=== PATIENT | male | born 1995 ===

== ENCOUNTER 2021-08-22 09:37 | Inpatient (IN) | payer SELFPAY ==
[2021-08-22] MEDS ORDERED: ONDANSETRON 4 MG ODT TAB PO ONE (10:19)
[2021-08-22 11:59] LABS: Hematocrit 50.2 % (35.5-45.6); Hemoglobin 16.5 gm/dl (11.8-15.2); Mean Corpuscular HGB Conc 33 % (32-34); Mean Corpuscular Volume 89 fl (84-94); Platelet Count 430 K/mm3 (140-440); Red Blood Count 5.65 M/mm3 (3.65-5.03); Red Cell Distribution Width 13.6 % (13.2-15.2)
[2021-08-22 12:41] LABS: Albumin 7.3 g/dL (3.9-5)
[2021-08-22] MEDS ORDERED: SODIUM CHLORIDE 0.9% 1000 ML 1,000 ML IV ONE (13:53)
--- NOTE | 2021-08-22 14:00 | Emergency Department Report ---
ED Abdominal Pain HPI - General Chief Complaint: Abdominal Pain Stated Complaint: LEG PAIN Time Seen by Provider: 08/22/21 13:47 Source: patient Mode of arrival: Ambulatory Limitations: Language Barrier - History of Present Illness Initial Comments: Patient is a 26-year-old male presenting to ED with complaint of abdominal pain, vomiting, generalized body aches, malaise and subjective fever beginning yesterday. He is from out of town and visiting a friend. States he had similar episode years ago that improved with IV fluids. He denies any strenuous activity recently. No modifying factors. Reports history of abdominal hernia. - Related Data Allergies Allergy/AdvReac Type Severity Reaction Status Date / Time No Known Allergies Allergy Verified 08/22/21 10:19 ED Review of Systems ROS: Stated complaint: LEG PAIN Other details as noted in HPI Comment: All other systems reviewed and negative Constitutional: denies: chills, fever Respiratory: denies: cough, shortness of breath, wheezing Cardiovascular: denies: chest pain, palpitations ED Past Medical Hx - Past Medical History Previous Medical History?: No ED Physical Exam - General Limitations: Language Barrier General appearance: alert, in no apparent distress - Head Head exam: Present: atraumatic, normocephalic - Eye Eye exam: Present: normal appearance. Absent: scleral icterus - Neck Neck exam: Present: normal inspection - Respiratory Respiratory exam: Present: normal lung sounds bilaterally. Absent: respiratory distress - Cardiovascular Cardiovascular Exam: Present: normal rhythm, tachycardia, normal heart sounds - GI/Abdominal GI/Abdominal exam: Present: soft. Absent: distended, tenderness, organomegaly, mass - Rectal Rectal exam: Present: deferred - Neurological Exam Neurological exam: Present: alert, oriented X3 - Psychiatric Psychiatric exam: Present: normal affect, normal mood - Skin Skin exam: Present: warm, dry, intact, normal color ED Course Vital Signs 08/22/21 08/22/21 08/22/21 10:06 14:11 16:11 Temperature 98.7 F Pulse Rate 135 H 101 H 108 H Respiratory 16 16 16 Rate Blood Pressure 116/79 Blood Pressure 121/73 110/67 [Left] O2 Sat by Pulse 97 100 100 Oximetry 08/22/21 18:00 Temperature Pulse Rate 93 H Respiratory 14 Rate Blood Pressure Blood Pressure 102/60 [Left] O2 Sat by Pulse 100 Oximetry ED Medical Decision Making - Lab Data Result diagrams: 08/22/21 11:28 08/22/21 18:39 - Medical Decision Making Significant laboratory findings include creatinine of 6.7 and CK of 1934. Patient given IV fluids. Differential diagnosis includes acute renal failure, rhabdomyolysis. Will admit to hospitalist for further management. Critical care attestation.: If time is entered above; I have spent that time in minutes in the direct care of this critically ill patient, excluding procedure time. ED Disposition Clinical Impression: Acute renal failure, Elevated CK Disposition: ADMITTED INPATIENT Is pt being admited?: Yes Condition: Stable
--- NOTE | 2021-08-22 16:56 | Cat Scan Report ---
CT ABDOMEN AND PELVIS WITHOUT CONTRAST INDICATION / CLINICAL INFORMATION: Abdominal pain. TECHNIQUE: Axial CT images were obtained through the abdomen and pelvis without IV contrast. All CT scans at this location are performed using CT dose reduction for ALARA by means of automated exposure control. COMPARISON: None available. FINDINGS: LOWER CHEST: Small left anterior pneumothorax along the lingula. Additional gas seen tracking along t he medial left lower lobe and in the left fissure. There is pneumomediastinum and tiny right pneumoth orax posteriorly. No focal airspace consolidation. LIVER: No significant abnormality GALLBLADDER/BILIARY TREE: No significant abnormality PANCREAS: No significant abnormality SPLEEN: No significant abnormality ADRENALS: No significant abnormality RIGHT KIDNEY / URETER: No significant abnormality LEFT KIDNEY / URETER: No significant abnormality URINARY BLADDER: No significant abnormality REPRODUCTIVE ORGANS: No significant abnormality STOMACH / BOWEL: Stomach and small bowel are normal in caliber. The colon is largely decompressed wit hout significant wall thickening or pericolonic inflammatory stranding. Normal appendix. LYMPH NODES: No significant adenopathy. VASCULATURE: No significant abnormality. OTHER: No free air, free fluid, or focal fluid collection is identified. SKELETAL SYSTEM: No acute osseous findings. IMPRESSION: 1. Partially imaged small bilateral pneumothoraces, left greater the right, and pneumomediastinum. Th is is nonspecific but could represent esophageal injury/perforation, though the visualized esophagus appears unremarkable. Recommend further evaluation with CT of the chest. 2. No acute abnormality of the abdomen or pelvis. No evidence of localized bowel inflammation or obst ruction. Findings were discussed with Dr. Huerta by phone on 08/22/2021 at 3:50 PM. Signer Name: Justo Cheung MD Signed: 08/22/2021 4:51 PM Workstation Name: [email or web address]
[2021-08-22 18:55] LABS: Band Neutrophils # (Manual) 0.3 K/mm3; Basophils % (Manual) 0 % (0.0-1.8); Platelet Estimate Consistent w Auto; RBC Morphology Normal; Total Cells Counted 100
[2021-08-22 19:34] LABS: Calcium 11.4 mg/dL (8.4-10.2)
--- NOTE | 2021-08-22 19:44 | Cat Scan Report ---
CT CHEST WITHOUT CONTRAST INDICATION / CLINICAL INFORMATION: Pneumothoraces on CT abdomen. TECHNIQUE: Axial CT images were obtained through the chest without contrast. All CT scans at this [facility] ation are performed using CT dose reduction for ALARA by means of automated exposure control. COMPARISON: None available. FINDINGS: HEART: No significant abnormality. CORONARY ARTERY CALCIFICATION: Absent -- None. THORACIC AORTA: No significant abnormality. MEDIASTINUM / ASHLEY: Mild pneumomediastinum. PLEURA: Somewhat limited in evaluation given respiratory motion artifact. Suspect tiny left basilar p neumothorax. LUNGS: No acute air space or interstitial disease. ADDITIONAL FINDINGS: None. UPPER ABDOMEN: No significant abnormality. SKELETAL SYSTEM: No significant abnormality. IMPRESSION: Mild to moderate pneumomediastinum with tiny left-sided pneumothorax near the left lung base. See abo ve comments. There is no obvious fluid within the mediastinum within the limits of the exam. Neverthe less if there is concern for esophageal injury barium swallow is suggested for further evaluation. Signer Name: Izaiah Rawls MD Signed: 08/22/2021 7:39 PM Workstation Name: [id number]
[2021-08-22] MEDS ORDERED: METOCLOPRAMIDE 10 MG/2 ML INJ IV PRN (20:59)
[2021-08-22] MEDS ORDERED: MORPHINE 2 MG/1 ML INJ IV PRN (20:59)
[2021-08-22] MEDS ORDERED: ONDANSETRON 4 MG/2 ML INJ IV PRN (20:59)
[2021-08-22] MEDS ORDERED: ACETAMINOPHEN 325 MG TAB PO PRN (20:59)
[2021-08-22] MEDS ORDERED: oxyCODONE /ACETAMINOPHEN 5-325MG TAB PO PRN (20:59)
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
[2021-08-22] MEDS: SODIUM CHLORIDE 0.9% 1000 ML 1,000 ML IV SCH (21:22)
[2021-08-22] MEDS: HEPARIN 5,000 UNIT/1 ML VIAL SUB-Q SCH (23:26)
[2021-08-23] MEDS: cefTRIAXone/NS 1 GM/50 ML 1 GM/50 ML BAG IV SCH ×2 (00:46→13:15)
[2021-08-23 04:57] LABS: Hematocrit 39.8 % (35.5-45.6); Hemoglobin 13.9 gm/dl (11.8-15.2); Mean Corpuscular HGB Conc 35 % (32-34); Mean Corpuscular Volume 88 fl (84-94); Platelet Count 304 K/mm3 (140-440); Red Blood Count 4.53 M/mm3 (3.65-5.03); Red Cell Distribution Width 13.7 % (13.2-15.2)
[2021-08-23 05:16] LABS: Albumin 4.9 g/dL (3.9-5); Calcium 9.8 mg/dL (8.4-10.2)
[2021-08-23 05:58] LABS: Bilirubin,Urine NEG (Negative); Blood,Urine LG (Negative); Color,Urine Yellow (Yellow); Urobilinogen,Urine < 2.0 mg/dL (<2.0)
[2021-08-23 06:06] LABS: Basophils % (Manual) 0 % (0.0-1.8); Eosinophils % (Manual) 0 % (0.0-4.3); Total Cells Counted 100
[2021-08-23 06:08] LABS: Platelet Estimate Consistent w Auto; RBC Morphology Normal
[2021-08-23] MEDS: SODIUM CHLORIDE 0.9% 1000 ML 1,000 ML IV SCH ×2 (06:43→21:14)
[2021-08-23] MEDS ORDERED: CEFEPIME/NS 1 GM/100 ML 1 GM/100 ML BAG IV SCH (08:00)
--- NOTE | 2021-08-23 09:49 | Consultation ---
History of Present Illness - Reason for Consult Consult date: 08/23/21 acute renal failure - History of Present Illness Patient is a 26-year-old male presenting to ED with complaint of abdominal pain, vomiting, generalized body aches, malaise and subjective fever beginning yesterday. He reports a similar episode years ago that improved with IV fluids. He denies any strenuous activity recently. No modifying factors. Reports history of abdominal hernia. Labs were notable for creatinine 6.7 and calcium 12. CK has increased to 3k. Past History Past Medical History: No medical history Past Surgical History: No surgical history Social history: lives with family, full code Family history: hypertension Medications and Allergies Allergies Allergy/AdvReac Type Severity Reaction Status Date / Time No Known Allergies Allergy Verified 08/22/21 10:19 Home Medications Medication Instructions Recorded Confirmed Last Taken Type No Known Home Medications [No 08/23/21 08/23/21 Unknown History Reported Home Medications] Active Meds: Active Medications Acetaminophen (Acetaminophen 325 Mg Tab) 650 mg PO Q4H PRN PRN Reason: Pain MILD(1-3)/Fever >100.5/AMADOR Heparin Sodium (Porcine) (Heparin 5,000 Unit/1 Ml Vial) 5,000 unit SUB-Q Q12HR ARELI Last Admin: 08/22/21 23:26 Dose: 5,000 unit Sodium Chloride (Nacl 0.9% 1000 Ml) 1,000 mls @ 150 mls/hr IV DIRECT ARELI Last Admin: 08/23/21 06:43 Dose: 150 mls/hr Ceftriaxone Sodium (Rocephin/Ns 1 Gm/50 Ml) 1 gm in 50 mls @ 100 mls/hr IV Q24HR ARELI; Protocol Last Admin: 08/23/21 00:46 Dose: 100 mls/hr Metronidazole (Flagyl 500 Mg/100 Ml) 500 mg in 100 mls @ 100 mls/hr IV Q8H ARELI; Protocol Metoclopramide HCl (Metoclopramide 10 Mg/2 Ml Inj) 5 mg IV Q6H PRN PRN Reason: Nausea And Vomiting Morphine Sulfate (Morphine 2 Mg/1 Ml Inj) 2 mg IV Q4H PRN PRN Reason: Pain, Moderate (4-6) Ondansetron HCl (Ondansetron 4 Mg/2 Ml Inj) 4 mg IV Q8H PRN PRN Reason: Nausea And Vomiting Oxycodone/Acetaminophen (Oxycodone /Acetaminophen 5-325mg Tab) 1 tab PO Q6H PRN PRN Reason: Pain, Moderate (4-6) Sodium Chloride (Sodium Chloride 0.9% 10 Ml Flush Syringe) 10 ml IV BID ARELI Last Admin: 08/22/21 23:34 Dose: 10 ml Sodium Chloride (Sodium Chloride 0.9% 10 Ml Flush Syringe) 10 ml IV PRN PRN PRN Reason: LINE FLUSH Review of Systems All systems: negative Exam - Vital Signs Vital signs: Vital Signs Temp Pulse Resp BP Pulse Ox 98.7 F 135 H 16 116/79 97 08/22/21 10:06 08/22/21 10:06 08/22/21 10:06 08/22/21 10:08/22/21 10:06 - General Appearance General appearance: well-developed, well-nourished EENT: ATNC Respiratory: Clear to Ascultation Heart: S1S2 Gastrointestinal: Present: normal. Absent: tenderness, distended Integumentary: warm and dry Results - Lab Results 08/24/21 04:25 08/24/21 04:25 Most recent lab results Calcium 9.8 mg/dL (8.4-10.2) 08/23/21 04:30 Assessment and Plan Impression: * Acute kidney injury secondary to prerenal azotemia due to volume depletion * Rhabdomyolysis * Pneumomediastinum * Pneumonthorax, bilateral * Hypercalcemia - resolved Plan: * Renal function has improved since admission. Continue conservative management. No acute need for renal replacement therapy * IVF for hydration * Abd/Pelvic CT reviewed - no renal findings noted * Avoid potential nephrotoxins agents * Dose medications for renal renal
--- NOTE | 2021-08-23 10:04 | Gastroenterology Consultation ---
<PANDA MCALLISTER - Last Filed: 08/23/21 11:24> History of Present Illness - Reason for Consult Consult date: 08/23/21 possible esophageal tear - History of Present Illness Mr. Gao is a 26 y/o setswana speaking M who presented to the ED yesterday c/o abd cramping, fatigue, weakness, and vomiting x2 days. He describes his pain as "cramping" and is located in his LLQ and radiates to his umbilical region. Denies vomiting today or seeing blood in his vomit previously. No BMs since admission. Pt reports that he has been eating and doing well in the hospital, but previously eating was causing him to feel sick to his stomach and vomit. Pt reports previous episodes similar to this x1.5 yrs ago. He reports being hospitalized x2 days at that time. Reports having and EGD that revealed a hernia, did not report other findings. GI has been consulted for a possible e sophageal tear as evidenced by chest CT. Further workup (barium swallow) was recommended. CK 1934, creatinine 6.7. Past History Past Medical History: No medical history Past Surgical History: No surgical history Social history: lives with family, full code Family history: hypertension Medications and Allergies Allergies Allergy/AdvReac Type Severity Reaction Status Date / Time No Known Allergies Allergy Verified 08/22/21 10:19 Home Medications Medication Instructions Recorded Confirmed Last Taken Type No Known Home Medications [No 08/23/21 08/23/21 Unknown History Reported Home Medications] Active Meds: Active Medications Acetaminophen (Acetaminophen 325 Mg Tab) 650 mg PO Q4H PRN PRN Reason: Pain MILD(1-3)/Fever >100.5/[facility] Heparin Sodium (Porcine) (Heparin 5,000 Unit/1 Ml Vial) 5,000 unit SUB-Q Q12HR ARE[facility] Last Admin: 08/22/21 23:26 Dose: 5,000 unit Sodium Chloride (Nacl 0.9% 1000 Ml) 1,000 mls @ 150 mls/hr IV DIRECT ARELI Last Admin: 08/23/21 06:43 Dose: 150 mls/hr Ceftriaxone Sodium (Rocephin/Ns 1 Gm/50 Ml) 1 gm in 50 mls @ 100 mls/hr IV Q24HR [facility]; Protocol Last Admin: 08/23/21 00:46 Dose: 100 mls/hr Metronidazole (Flagyl 500 Mg/100 Ml) 500 mg in 100 mls @ 100 mls/hr IV Q8H [facility]; Protocol Metoclopramide HCl (Metoclopramide 10 Mg/2 Ml Inj) 5 mg IV Q6H PRN PRN Reason: Nausea And Vomiting Morphine Sulfate (Morphine 2 Mg/1 Ml Inj) 2 mg IV Q4H PRN PRN Reason: Pain, Moderate (4-6) Ondansetron HCl (Ondansetron 4 Mg/2 Ml Inj) 4 mg IV Q8H PRN PRN Reason: Nausea And Vomiting Oxycodone/Acetaminophen (Oxycodone /Acetaminophen 5-325mg Tab) 1 tab PO Q6H PRN PRN Reason: Pain, Moderate (4-6) Sodium Chloride (Sodium Chloride 0.9% 10 Ml Flush Syringe) 10 ml IV BID [facility] Last Admin: 08/22/21 23:34 Dose: 10 ml Sodium Chloride (Sodium Chloride 0.9% 10 Ml Flush Syringe) 10 ml IV PRN PRN PRN Reason: LINE FLUSH Review of Systems - Review of Systems Gastrointestinal: abdominal pain, vomiting Exam - Constitutional Vital Signs: Temp Pulse Resp BP Pulse Ox 99.1 F 89 7 L 109/72 100 08/22/21 20:52 08/22/21 21:31 08/22/21 21:31 08/22/21 21:31 08/23/21 06:37 - EENT ENT: hearing intact - Gastrointestinal General gastrointestinal: Present: soft, tender, non-distended - Neurologic Neurological: alert and oriented x3 - Psychiatric Psychiatric: appropriate mood/affect, intact judgment & insight, memory intact, cooperative - Labs CBC & Chem 7: 08/23/21 04:30 08/23/21 04:30 Lab Results: Laboratory Results - last 24 hr 08/22/21 08/22/21 08/22/21 11:28 11:28 13:30 WBC 29.0 H RBC 5.65 H Hgb 16.5 H Hct 50.2 H MCV 89 MCH 29 MCHC 33 RDW 13.6 Plt Count 430 Add Manual Diff Complete Total Counted 100 Seg Neuts % (Manual) 84.0 H Band Neutrophils % 1.0 Lymphocytes % (Manual) 9.0 L Reactive Lymphs % (Man) 1.0 Monocytes % (Manual) 4.0 Eosinophils % (Manual) 1.0 Basophils % (Manual) 0 Metamyelocytes % 0 Myelocytes % 0 Promyelocytes % 0 Blast Cells % 0 Nucleated RBC % Not Reportable Seg Neutrophils # Man 24.4 H Band Neutrophils # 0.3 Lymphocytes # (Manual) 2.6 Abs React Lymphs (Man) 0.3 Monocytes # (Manual) 1.2 H Eosinophils # (Manual) 0.3 Basophils # (Manual) 0.0 Metamyelocytes # 0.0 Myelocytes # 0.0 Promyelocytes # 0.0 Blast Cells # 0.0 WBC Morphology Not Reportable Hypersegmented Neuts Not Reportable Hyposegmented Neuts Not Reportable Hypogranular Neuts Not Reportable Smudge Cells Not Reportable Toxic Granulation Not Reportable Toxic Vacuolation Not Reportable Dohle Bodies Not Reportable Pelger-Huet Anomaly Not Reportable Terrell Rods Not Reportable Platelet Estimate Consistent w auto Clumped Platelets Not Reportable Plt Clumps, EDTA Not Reportable Large Platelets Not Reportable Giant Platelets Not Reportable Platelet Satelliting Not Reportable Plt Morphology Comment Not Reportable RBC Morphology Normal Dimorphic RBCs Not Reportable Polychromasia Not Reportable Hypochromasia Not Reportable Poikilocytosis Not Reportable Anisocytosis Not Reportable Microcytosis Not Reportable Macrocytosis Not Reportable Spherocytes Not Reportable Pappenheimer Bodies Not Reportable Sickle Cells Not Reportable Target Cells Not Reportable Tear Drop Cells Not Reportable Ovalocytes Not Reportable Helmet Cells Not Reportable Burgos-Kirwin Bodies Not Reportable Glenn Rings Not Reportable [place] Cells Not Reportable Bite Cells Not Reportable Crenated Cell Not Reportable Elliptocytes Not Reportable Acanthocytes (Spur) Not Reportable Rouleaux Not Reportable Hemoglobin C Crystals Not Reportable Schistocytes Not Reportable Malaria parasites Not Reportable Jez Bodies Not Reportable Hem Pathologist Commnt No Sodium 138 Potassium 4.6 Chloride 89.5 L Carbon Dioxide 16 L Anion Gap 37 BUN 53 H Creatinine 6.7 H Estimated GFR 10 BUN/Creatinine Ratio 8 Glucose 152 H Lactic Acid Calcium 12.0 H Total Bilirubin 2.10 H AST 39 ALT 31 Alkaline Phosphatase 128 Total Creatine Kinase Total Protein 11.6 H Albumin 7.3 H Albumin/Globulin Ratio 1.7 Lipase 51 Urine Color Urine Turbidity Urine pH Ur Specific [place] Urine Protein Urine Glucose (UA) Urine Ketones Urine Blood Urine Nitrite Urine Bilirubin Urine Urobilinogen Ur Leukocyte Esterase Urine WBC (Auto) Urine RBC (Auto) 08/22/21 08/22/21 08/22/21 14:02 16:53 18:04 WBC RBC Hgb Hct MCV MCH MCHC RDW Plt Count Add Manual Diff Total Counted Seg Neuts % (Manual) Band Neutrophils % Lymphocytes % (Manual) Reactive Lymphs % (Man) Monocytes % (Manual) Eosinophils % (Manual) Basophils % (Manual) Metamyelocytes % Myelocytes % Promyelocytes % Blast Cells % Nucleated RBC % Seg Neutrophils # Man Band Neutrophils # Lymphocytes # (Manual) Abs React Lymphs (Man) Monocytes # (Manual) Eosinophils # (Manual) Basophils # (Manual) Metamyelocytes # Myelocytes # Promyelocytes # Blast Cells # WBC Morphology Hypersegmented Neuts Hyposegmented Neuts Hypogranular Neuts Smudge Cells Toxic Granulation Toxic Vacuolation Dohle Bodies Pelger-Huet Anomaly Terrell Rods Platelet Estimate Clumped Platelets Plt Clumps, EDTA Large Platelets Giant Platelets Platelet Satelliting Plt Morphology Comment RBC Morphology Dimorphic RBCs Polychromasia Hypochromasia Poikilocytosis Anisocytosis Microcytosis Macrocytosis Spherocytes Pappenheimer Bodies Sickle Cells Target Cells Tear Drop Cells Ovalocytes Helmet Cells Burgos-Kirwin Bodies Glenn Rings [place] Cells Bite Cells Crenated Cell Elliptocytes Acanthocytes (Spur) Rouleaux Hemoglobin C Crystals Schistocytes Malaria parasites Jez Bodies Hem Pathologist Commnt Sodium Potassium Chloride Carbon Dioxide Anion Gap BUN Creatinine Estimated GFR BUN/Creatinine Ratio Glucose Lactic Acid 3.40 H* 2.80 H* Calcium Total Bilirubin AST ALT Alkaline Phosphatase Total Creatine Kinase 1934 H Total Protein Albumin Albumin/Globulin Ratio Lipase Urine Color Urine Turbidity Urine pH Ur Specific [place] Urine Protein Urine Glucose (UA) Urine Ketones Urine Blood Urine Nitrite Urine Bilirubin Urine Urobilinogen Ur Leukocyte Esterase Urine WBC (Auto) Urine RBC (Auto) 08/22/21 08/22/21 08/22/21 18:39 19:54 21:25 WBC RBC Hgb Hct MCV MCH MCHC RDW Plt Count Add Manual Diff Total Counted Seg Neuts % (Manual) Band Neutrophils % Lymphocytes % (Manual) Reactive Lymphs % (Man) Monocytes % (Manual) Eosinophils % (Manual) Basophils % (Manual) Metamyelocytes % Myelocytes % Promyelocytes % Blast Cells % Nucleated RBC % Seg Neutrophils # Man Band Neutrophils # Lymphocytes # (Manual) Abs React Lymphs (Man) Monocytes # (Manual) Eosinophils # (Manual) Basophils # (Manual) Metamyelocytes # Myelocytes # Promyelocytes # Blast Cells # WBC Morphology Hypersegmented Neuts Hyposegmented Neuts Hypogranular Neuts Smudge Cells Toxic Granulation Toxic Vacuolation Dohle Bodies Pelger-Huet Anomaly Terrell Rods Platelet Estimate Clumped Platelets Plt Clumps, EDTA Large Platelets Giant Platelets Platelet Satelliting Plt Morphology Comment RBC Morphology Dimorphic RBCs Polychromasia Hypochromasia Poikilocytosis Anisocytosis Microcytosis Macrocytosis Spherocytes Pappenheimer Bodies Sickle Cells Target Cells Tear Drop Cells Ovalocytes Helmet Cells Burgos-Kirwin Bodies Glenn Rings [place] Cells Bite Cells Crenated Cell Elliptocytes Acanthocytes (Spur) Rouleaux Hemoglobin C Crystals Schistocytes Malaria parasites Jez Bodies Hem Pathologist Commnt Sodium 142 Potassium 5.3 H Chloride 94.4 L Carbon Dioxide 24 D Anion Gap 29 BUN 61 H Creatinine 6.5 H Estimated GFR 10 BUN/Creatinine Ratio 9 Glucose 102 H Lactic Acid 3.10 H* Calcium 11.4 H Total Bilirubin AST ALT Alkaline Phosphatase Total Creatine Kinase 3046 H Total Protein Albumin Albumin/Globulin Ratio Lipase Urine Color Urine Turbidity Urine pH Ur Specific [place] Urine Protein Urine Glucose (UA) Urine Ketones Urine Blood Urine Nitrite Urine Bilirubin Urine Urobilinogen Ur Leukocyte Esterase Urine WBC (Auto) Urine RBC (Auto) 08/23/21 08/23/21 08/23/21 04:30 04:30 05:39 WBC 21.7 H RBC 4.53 Hgb 13.9 Hct 39.8 D MCV 88 MCH 31 MCHC 35 H RDW 13.7 Plt Count 304 Add Manual Diff Complete Total Counted 100 Seg Neuts % (Manual) 84.0 H Band Neutrophils % 0 Lymphocytes % (Manual) 10.0 L Reactive Lymphs % (Man) 0 Monocytes % (Manual) 6.0 Eosinophils % (Manual) 0 Basophils % (Manual) 0 Metamyelocytes % 0 Myelocytes % 0 Promyelocytes % 0 Blast Cells % 0 Nucleated RBC % Not Reportable Seg Neutrophils # Man 18.2 H Band Neutrophils # 0.0 Lymphocytes # (Manual) 2.2 Abs React Lymphs (Man) 0.0 Monocytes # (Manual) 1.3 H Eosinophils # (Manual) 0.0 Basophils # (Manual) 0.0 Metamyelocytes # 0.0 Myelocytes # 0.0 Promyelocytes # 0.0 Blast Cells # 0.0 WBC Morphology Not Reportable Hypersegmented Neuts Not Reportable Hyposegmented Neuts Not Reportable Hypogranular Neuts Not Reportable Smudge Cells Not Reportable Toxic Granulation Not Reportable Toxic Vacuolation Not Reportable Dohle Bodies Not Reportable Pelger-Huet Anomaly Not Reportable Terrell Rods Not Reportable Platelet Estimate Consistent w auto Clumped Platelets Not Reportable Plt Clumps, EDTA Not Reportable Large Platelets Not Reportable Giant Platelets Not Reportable Platelet Satelliting Not Reportable Plt Morphology Comment Not Reportable RBC Morphology Normal Dimorphic RBCs Not Reportable Polychromasia Not Reportable Hypochromasia Not Reportable Poikilocytosis Not Reportable Anisocytosis Not Reportable Microcytosis Not Reportable Macrocytosis Not Reportable Spherocytes Not Reportable Pappenheimer Bodies Not Reportable Sickle Cells Not Reportable Target Cells Not Reportable Tear Drop Cells Not Reportable Ovalocytes Not Reportable Helmet Cells Not Reportable Burgos-Kirwin Bodies Not Reportable Glenn Rings Not Reportable [place] Cells Not Reportable Bite Cells Not Reportable Crenated Cell Not Reportable Elliptocytes Not Reportable Acanthocytes (Spur) Not Reportable Rouleaux Not Reportable Hemoglobin C Crystals Not Reportable Schistocytes Not Reportable Malaria parasites Not Reportable Jez Bodies Not Reportable Hem Pathologist Commnt No Sodium 135 L Potassium 4.8 Chloride 96.6 L Carbon Dioxide 24 Anion Gap 19 BUN 62 H Creatinine 3.8 H Estimated GFR 20 BUN/Creatinine Ratio 16 Glucose 112 H Lactic Acid Calcium 9.8 Total Bilirubin 2.20 H AST 52 H ALT 25 Alkaline Phosphatase 98 Total Creatine Kinase Total Protein 8.0 D Albumin 4.9 Albumin/Globulin Ratio 1.6 Lipase Urine Color Yellow Urine Turbidity Slightly-cloudy Urine pH 5.0 Ur Specific [place] 1.018 Urine Protein 100 mg/dl Urine Glucose (UA) 50 Urine Ketones Neg Urine Blood Lg Urine Nitrite Neg Urine Bilirubin Neg Urine Urobilinogen < 2.0 Ur Leukocyte Esterase Neg Urine WBC (Auto) 4.0 Urine RBC (Auto) 2.0 08/23/21 09:15 WBC RBC Hgb Hct MCV MCH MCHC RDW Plt Count Add Manual Diff Total Counted Seg Neuts % (Manual) Band Neutrophils % Lymphocytes % (Manual) Reactive Lymphs % (Man) Monocytes % (Manual) Eosinophils % (Manual) Basophils % (Manual) Metamyelocytes % Myelocytes % Promyelocytes % Blast Cells % Nucleated RBC % Seg Neutrophils # Man Band Neutrophils # Lymphocytes # (Manual) Abs React Lymphs (Man) Monocytes # (Manual) Eosinophils # (Manual) Basophils # (Manual) Metamyelocytes # Myelocytes # Promyelocytes # Blast Cells # WBC Morphology Hypersegmented Neuts Hyposegmented Neuts Hypogranular Neuts Smudge Cells Toxic Granulation Toxic Vacuolation Dohle Bodies Pelger-Huet Anomaly Terrell Rods Platelet Estimate Clumped Platelets Plt Clumps, EDTA Large Platelets Giant Platelets Platelet Satelliting Plt Morphology Comment RBC Morphology Dimorphic RBCs Polychromasia Hypochromasia Poikilocytosis Anisocytosis Microcytosis Macrocytosis Spherocytes Pappenheimer Bodies Sickle Cells Target Cells Tear Drop Cells Ovalocytes Helmet Cells Burgos-Kirwin Bodies Glenn Rings [place] Cells Bite Cells Crenated Cell Elliptocytes Acanthocytes (Spur) Rouleaux Hemoglobin C Crystals Schistocytes Malaria parasites Jez Bodies Hem Pathologist Commnt Sodium Potassium Chloride Carbon Dioxide Anion Gap BUN Creatinine Estimated GFR BUN/Creatinine Ratio Glucose Lactic Acid 3.20 H* Calcium Total Bilirubin AST ALT Alkaline Phosphatase Total Creatine Kinase Total Protein Albumin Albumin/Globulin Ratio Lipase Urine Color Urine Turbidity Urine pH Ur Specific [place] Urine Protein Urine Glucose (UA) Urine Ketones Urine Blood Urine Nitrite Urine Bilirubin Urine Urobilinogen Ur Leukocyte Esterase Urine WBC (Auto) Urine RBC (Auto) Assessment and Plan 1. possible esophageal tear - Do not see need for barium swallow test at this time as pt is eating w/o complaints. <KEI REYES - Last Filed: 08/23/21 12:53> Medications and Allergies Active Meds: Active Medications Acetaminophen (Acetaminophen 325 Mg Tab) 650 mg PO Q4H PRN PRN Reason: Pain MILD(1-3)/Fever >100.5/[facility] Heparin Sodium (Porcine) (Heparin 5,000 Unit/1 Ml Vial) 5,000 unit SUB-Q Q12HR [facility] Last Admin: 08/22/21 23:26 Dose: 5,000 unit Sodium Chloride (Nacl 0.9% 1000 Ml) 1,000 mls @ 150 mls/hr IV DIRECT [facility] Last Admin: 08/23/21 06:43 Dose: 150 mls/hr Ceftriaxone Sodium (Rocephin/Ns 1 Gm/50 Ml) 1 gm in 50 mls @ 100 mls/hr IV Q24HR [facility]; Protocol Last Admin: 08/23/21 00:46 Dose: 100 mls/hr Metronidazole (Flagyl 500 Mg/100 Ml) 500 mg in 100 mls @ 100 mls/hr IV Q8H [facility]; Protocol Metoclopramide HCl (Metoclopramide 10 Mg/2 Ml Inj) 5 mg IV Q6H PRN PRN Reason: Nausea And Vomiting Morphine Sulfate (Morphine 2 Mg/1 Ml Inj) 2 mg IV Q4H PRN PRN Reason: Pain, Moderate (4-6) Ondansetron HCl (Ondansetron 4 Mg/2 Ml Inj) 4 mg IV Q8H PRN PRN Reason: Nausea And Vomiting Oxycodone/Acetaminophen (Oxycodone /Acetaminophen 5-325mg Tab) 1 tab PO Q6H PRN PRN Reason: Pain, Moderate (4-6) Sodium Chloride (Sodium Chloride 0.9% 10 Ml Flush Syringe) 10 ml IV BID [facility] Last Admin: 08/22/21 23:34 Dose: 10 ml Sodium Chloride (Sodium Chloride 0.9% 10 Ml Flush Syringe) 10 ml IV PRN PRN PRN Reason: LINE FLUSH Reviewed/updated patients home and current medications Exam - Constitutional Vital Signs: Temp Pulse Resp BP Pulse Ox 98.6 F 69 18 103/63 98 08/23/21 07:21 08/23/21 07:21 08/23/21 07:21 08/23/21 07:21 08/23/21 07:21 - Labs CBC & Chem 7: 08/23/21 04:30 08/23/21 04:30 Lab Results: Laboratory Results - last 24 hr 08/22/21 08/22/21 08/22/21 11:28 13:30 14:02 WBC 29.0 H RBC 5.65 H Hgb 16.5 H Hct 50.2 H MCV 89 MCH 29 MCHC 33 RDW 13.6 Plt Count 430 Add Manual Diff Complete Total Counted 100 Seg Neuts % (Manual) 84.0 H Band Neutrophils % 1.0 Lymphocytes % (Manual) 9.0 L Reactive Lymphs % (Man) 1.0 Monocytes % (Manual) 4.0 Eosinophils % (Manual) 1.0 Basophils % (Manual) 0 Metamyelocytes % 0 Myelocytes % 0 Promyelocytes % 0 Blast Cells % 0 Nucleated RBC % Not Reportable Seg Neutrophils # Man 24.4 H Band Neutrophils # 0.3 Lymphocytes # (Manual) 2.6 Abs React Lymphs (Man) 0.3 Monocytes # (Manual) 1.2 H Eosinophils # (Manual) 0.3 Basophils # (Manual) 0.0 Metamyelocytes # 0.0 Myelocytes # 0.0 Promyelocytes # 0.0 Blast Cells # 0.0 WBC Morphology Not Reportable Hypersegmented Neuts Not Reportable Hyposegmented Neuts Not Reportable Hypogranular Neuts Not Reportable Smudge Cells Not Reportable Toxic Granulation Not Reportable Toxic Vacuolation Not Reportable Dohle Bodies Not Reportable Pelger-Huet Anomaly Not Reportable Terrell Rods Not Reportable Platelet Estimate Consistent w auto Clumped Platelets Not Reportable Plt Clumps, EDTA Not Reportable Large Platelets Not Reportable Giant Platelets Not Reportable Platelet Satelliting Not Reportable Plt Morphology Comment Not Reportable RBC Morphology Normal Dimorphic RBCs Not Reportable Polychromasia Not Reportable Hypochromasia Not Reportable Poikilocytosis Not Reportable Anisocytosis Not Reportable Microcytosis Not Reportable Macrocytosis Not Reportable Spherocytes Not Reportable Pappenheimer Bodies Not Reportable Sickle Cells Not Reportable Target Cells Not Reportable Tear Drop Cells Not Reportable Ovalocytes Not Reportable Helmet Cells Not Reportable Burgos-Kirwin Bodies Not Reportable Glenn Rings Not Reportable Gian Cells Not Reportable Bite Cells Not Reportable Crenated Cell Not Reportable Elliptocytes Not Reportable Acanthocytes (Spur) Not Reportable Rouleaux Not Reportable Hemoglobin C Crystals Not Reportable Schistocytes Not Reportable Malaria parasites Not Reportable Jez Bodies Not Reportable Hem Pathologist Commnt No Sodium Potassium Chloride Carbon Dioxide Anion Gap BUN Creatinine Estimated GFR BUN/Creatinine Ratio Glucose Lactic Acid Calcium Total Bilirubin AST ALT Alkaline Phosphatase Total Creatine Kinase 1934 H Total Protein Albumin Albumin/Globulin Ratio Lipase 51 Urine Color Urine Turbidity Urine pH Ur Specific [place] Urine Protein Urine Glucose (UA) Urine Ketones Urine Blood Urine Nitrite Urine Bilirubin Urine Urobilinogen Ur Leukocyte Esterase Urine WBC (Auto) Urine RBC (Auto) 08/22/21 08/22/21 08/22/21 16:53 18:04 18:39 WBC RBC Hgb Hct MCV MCH MCHC RDW Plt Count Add Manual Diff Total Counted Seg Neuts % (Manual) Band Neutrophils % Lymphocytes % (Manual) Reactive Lymphs % (Man) Monocytes % (Manual) Eosinophils % (Manual) Basophils % (Manual) Metamyelocytes % Myelocytes % Promyelocytes % Blast Cells % Nucleated RBC % Seg Neutrophils # Man Band Neutrophils # Lymphocytes # (Manual) Abs React Lymphs (Man) Monocytes # (Manual) Eosinophils # (Manual) Basophils # (Manual) Metamyelocytes # Myelocytes # Promyelocytes # Blast Cells # WBC Morphology Hypersegmented Neuts Hyposegmented Neuts Hypogranular Neuts Smudge Cells Toxic Granulation Toxic Vacuolation Dohle Bodies Pelger-Huet Anomaly Terrell Rods Platelet Estimate Clumped Platelets Plt Clumps, EDTA Large Platelets Giant Platelets Platelet Satelliting Plt Morphology Comment RBC Morphology Dimorphic RBCs Polychromasia Hypochromasia Poikilocytosis Anisocytosis Microcytosis Macrocytosis Spherocytes Pappenheimer Bodies Sickle Cells Target Cells Tear Drop Cells Ovalocytes Helmet Cells Burgos-Kirwin Bodies Glenn Rings [place] Cells Bite Cells Crenated Cell Elliptocytes Acanthocytes (Spur) Rouleaux Hemoglobin C Crystals Schistocytes Malaria parasites Jez Bodies Hem Pathologist Commnt Sodium 142 Potassium 5.3 H Chloride 94.4 L Carbon Dioxide 24 D Anion Gap 29 BUN 61 H Creatinine 6.5 H Estimated GFR 10 BUN/Creatinine Ratio 9 Glucose 102 H Lactic Acid 3.40 H* 2.80 H* Calcium 11.4 H Total Bilirubin AST ALT Alkaline Phosphatase Total Creatine Kinase Total Protein Albumin Albumin/Globulin Ratio Lipase Urine Color Urine Turbidity Urine pH Ur Specific [place] Urine Protein Urine Glucose (UA) Urine Ketones Urine Blood Urine Nitrite Urine Bilirubin Urine Urobilinogen Ur Leukocyte Esterase Urine WBC (Auto) Urine RBC (Auto) 08/22/21 08/22/21 08/23/21 19:54 21:25 04:30 WBC 21.7 H RBC 4.53 Hgb 13.9 Hct 39.8 D MCV 88 MCH 31 MCHC 35 H RDW 13.7 Plt Count 304 Add Manual Diff Complete Total Counted 100 Seg Neuts % (Manual) 84.0 H Band Neutrophils % 0 Lymphocytes % (Manual) 10.0 L Reactive Lymphs % (Man) 0 Monocytes % (Manual) 6.0 Eosinophils % (Manual) 0 Basophils % (Manual) 0 Metamyelocytes % 0 Myelocytes % 0 Promyelocytes % 0 Blast Cells % 0 Nucleated RBC % Not Reportable Seg Neutrophils # Man 18.2 H Band Neutrophils # 0.0 Lymphocytes # (Manual) 2.2 Abs React Lymphs (Man) 0.0 Monocytes # (Manual) 1.3 H Eosinophils # (Manual) 0.0 Basophils # (Manual) 0.0 Metamyelocytes # 0.0 Myelocytes # 0.0 Promyelocytes # 0.0 Blast Cells # 0.0 WBC Morphology Not Reportable Hypersegmented Neuts Not Reportable Hyposegmented Neuts Not Reportable Hypogranular Neuts Not Reportable Smudge Cells Not Reportable Toxic Granulation Not Reportable Toxic Vacuolation Not Reportable Dohle Bodies Not Reportable Pelger-Huet Anomaly Not Reportable Terrell Rods Not Reportable Platelet Estimate Consistent w auto Clumped Platelets Not Reportable Plt Clumps, EDTA Not Reportable Large Platelets Not Reportable Giant Platelets Not Reportable Platelet Satelliting Not Reportable Plt Morphology Comment Not Reportable RBC Morphology Normal Dimorphic RBCs Not Reportable Polychromasia Not Reportable Hypochromasia Not Reportable Poikilocytosis Not Reportable Anisocytosis Not Reportable Microcytosis Not Reportable Macrocytosis Not Reportable Spherocytes Not Reportable Pappenheimer Bodies Not Reportable Sickle Cells Not Reportable Target Cells Not Reportable Tear Drop Cells Not Reportable Ovalocytes Not Reportable Helmet Cells Not Reportable Burgos-Kirwin Bodies Not Reportable Glenn Rings Not Reportable [place] Cells Not Reportable Bite Cells Not Reportable Crenated Cell Not Reportable Elliptocytes Not Reportable Acanthocytes (Spur) Not Reportable Rouleaux Not Reportable Hemoglobin C Crystals Not Reportable Schistocytes Not Reportable Malaria parasites Not Reportable Jez Bodies Not Reportable Hem Pathologist Commnt No Sodium Potassium Chloride Carbon Dioxide Anion Gap BUN Creatinine Estimated GFR BUN/Creatinine Ratio Glucose Lactic Acid 3.10 H* Calcium Total Bilirubin AST ALT Alkaline Phosphatase Total Creatine Kinase 3046 H Total Protein Albumin Albumin/Globulin Ratio Lipase Urine Color Urine Turbidity Urine pH Ur Specific [place] Urine Protein Urine Glucose (UA) Urine Ketones Urine Blood Urine Nitrite Urine Bilirubin Urine Urobilinogen Ur Leukocyte Esterase Urine WBC (Auto) Urine RBC (Auto) 08/23/21 08/23/2108/23/22 04:30 05:39 09:15 WBC RBC Hgb Hct MCV MCH MCHC RDW Plt Count Add Manual Diff Total Counted Seg Neuts % (Manual) Band Neutrophils % Lymphocytes % (Manual) Reactive Lymphs % (Man) Monocytes % (Manual) Eosinophils % (Manual) Basophils % (Manual) Metamyelocytes % Myelocytes % Promyelocytes % Blast Cells % Nucleated RBC % Seg Neutrophils # Man Band Neutrophils # Lymphocytes # (Manual) Abs React Lymphs (Man) Monocytes # (Manual) Eosinophils # (Manual) Basophils # (Manual) Metamyelocytes # Myelocytes # Promyelocytes # Blast Cells # WBC Morphology Hypersegmented Neuts Hyposegmented Neuts Hypogranular Neuts Smudge Cells Toxic Granulation Toxic Vacuolation Dohle Bodies Pelger-Huet Anomaly Terrell Rods Platelet Estimate Clumped Platelets Plt Clumps, EDTA Large Platelets Giant Platelets Platelet Satelliting Plt Morphology Comment RBC Morphology Dimorphic RBCs Polychromasia Hypochromasia Poikilocytosis Anisocytosis Microcytosis Macrocytosis Spherocytes Pappenheimer Bodies Sickle Cells Target Cells Tear Drop Cells Ovalocytes Helmet Cells Burgos-Kirwin Bodies Glenn Rings Gian Cells Bite Cells Crenated Cell Elliptocytes Acanthocytes (Spur) Rouleaux Hemoglobin C Crystals Schistocytes Malaria parasites Jez Bodies Hem Pathologist Commnt Sodium 135 L Potassium 4.8 Chloride 96.6 L Carbon Dioxide 24 Anion Gap 19 BUN 62 H Creatinine 3.8 H Estimated GFR 20 BUN/Creatinine Ratio 16 Glucose 112 H Lactic Acid Calcium 9.8 Total Bilirubin 2.20 H AST 52 H ALT 25 Alkaline Phosphatase 98 Total Creatine Kinase 2752 H Total Protein 8.0 D Albumin 4.9 Albumin/Globulin Ratio 1.6 Lipase Urine Color Yellow Urine Turbidity Slightly-cloudy Urine pH 5.0 Ur Specific [place] 1.018 Urine Protein 100 mg/dl Urine Glucose (UA) 50 Urine Ketones Neg Urine Blood Lg Urine Nitrite Neg Urine Bilirubin Neg Urine Urobilinogen < 2.0 Ur Leukocyte Esterase Neg Urine WBC (Auto) 4.0 Urine RBC (Auto) 2.0 08/23/21 09:15 WBC RBC Hgb Hct MCV MCH MCHC RDW Plt Count Add Manual Diff Total Counted Seg Neuts % (Manual) Band Neutrophils % Lymphocytes % (Manual) Reactive Lymphs % (Man) Monocytes % (Manual) Eosinophils % (Manual) Basophils % (Manual) Metamyelocytes % Myelocytes % Promyelocytes % Blast Cells % Nucleated RBC % Seg Neutrophils # Man Band Neutrophils # Lymphocytes # (Manual) Abs React Lymphs (Man) Monocytes # (Manual) Eosinophils # (Manual) Basophils # (Manual) Metamyelocytes # Myelocytes # Promyelocytes # Blast Cells # WBC Morphology Hypersegmented Neuts Hyposegmented Neuts Hypogranular Neuts Smudge Cells Toxic Granulation Toxic Vacuolation Dohle Bodies Pelger-Huet Anomaly Terrell Rods Platelet Estimate Clumped Platelets Plt Clumps, EDTA Large Platelets Giant Platelets Platelet Satelliting Plt Morphology Comment RBC Morphology Dimorphic RBCs Polychromasia Hypochromasia Poikilocytosis Anisocytosis Microcytosis Macrocytosis Spherocytes Pappenheimer Bodies Sickle Cells Target Cells Tear Drop Cells Ovalocytes Helmet Cells Burgos-Kirwin Bodies Glenn Rings Gian Cells Bite Cells Crenated Cell Elliptocytes Acanthocytes (Spur) Rouleaux Hemoglobin C Crystals Schistocytes Malaria parasites Jez Bodies Hem Pathologist Commnt Sodium Potassium Chloride Carbon Dioxide Anion Gap BUN Creatinine Estimated GFR BUN/Creatinine Ratio Glucose Lactic Acid 3.20 H* Calcium Total Bilirubin AST ALT Alkaline Phosphatase Total Creatine Kinase Total Protein Albumin Albumin/Globulin Ratio Lipase Urine Color Urine Turbidity Urine pH Ur Specific [place] Urine Protein Urine Glucose (UA) Urine Ketones Urine Blood Urine Nitrite Urine Bilirubin Urine Urobilinogen Ur Leukocyte Esterase Urine WBC (Auto) Urine RBC (Auto) Assessment and Plan Patient seen and examined. I spent over 50% of time on management and care of the patient. unclear etiology of pneumomediastinum. no obvious esophageal perforation on CT scan. tolerated po intake this AM. would monitor labs, diet as tolerated, and PPI BID dosing from gi stand point for time being.
--- NOTE | 2021-08-23 10:19 | Consultation ---
History of Present Illness Consult date: 08/23/21 Reason for consult: other (pneumomediastinum) History of present illness: 26 y/o , non hong konger speaking male who presents with fatigue, nausea vomiting and abdominal pain. CT of chest showed pneumomediastinum and per rads a basilar PTX. The latter I cannot appreciate on the imaging. Patient is not in any respiratory distress and on CT there does not appear to be any damage to the trachea. No prior history of trauma and no shortness of breath. Past History Past Medical History: No medical history Past Surgical History: No surgical history Social history: lives with family, full code Family history: hypertension Medications and Allergies Allergies Allergy/AdvReac Type Severity Reaction Status Date / Time No Known Allergies Allergy Verified 08/22/21 10:19 Home Medications Medication Instructions Recorded Confirmed Last Taken Type No Known Home Medications [No 08/23/21 08/23/21 Unknown History Reported Home Medications] Active Meds: Active Medications Acetaminophen (Acetaminophen 325 Mg Tab) 650 mg PO Q4H PRN PRN Reason: Pain MILD(1-3)/Fever >100.5/AMADOR Heparin Sodium (Porcine) (Heparin 5,000 Unit/1 Ml Vial) 5,000 unit SUB-Q Q12HR ARELI Last Admin: 08/22/21 23:26 Dose: 5,000 unit Sodium Chloride (Nacl 0.9% 1000 Ml) 1,000 mls @ 150 mls/hr IV DIRECT ARELI Last Admin: 08/23/21 06:43 Dose: 150 mls/hr Ceftriaxone Sodium (Rocephin/Ns 1 Gm/50 Ml) 1 gm in 50 mls @ 100 mls/hr IV Q24HR ARELI; Protocol Last Admin: 08/23/21 00:46 Dose: 100 mls/hr Metronidazole (Flagyl 500 Mg/100 Ml) 500 mg in 100 mls @ 100 mls/hr IV Q8H ARELI; Protocol Metoclopramide HCl (Metoclopramide 10 Mg/2 Ml Inj) 5 mg IV Q6H PRN PRN Reason: Nausea And Vomiting Morphine Sulfate (Morphine 2 Mg/1 Ml Inj) 2 mg IV Q4H PRN PRN Reason: Pain, Moderate (4-6) Ondansetron HCl (Ondansetron 4 Mg/2 Ml Inj) 4 mg IV Q8H PRN PRN Reason: Nausea And Vomiting Oxycodone/Acetaminophen (Oxycodone /Acetaminophen 5-325mg Tab) 1 tab PO Q6H PRN PRN Reason: Pain, Moderate (4-6) Sodium Chloride (Sodium Chloride 0.9% 10 Ml Flush Syringe) 10 ml IV BID ARELI Last Admin: 08/22/21 23:34 Dose: 10 ml Sodium Chloride (Sodium Chloride 0.9% 10 Ml Flush Syringe) 10 ml IV PRN PRN PRN Reason: LINE FLUSH Review of Systems All systems: negative Physical Examination Vital signs: Vital Signs Temp Pulse Resp BP Pulse Ox 98.7 F 135 H 16 116/79 97 08/22/21 10:06 08/22/21 10:06 08/22/21 10:06 08/22/21 10:06 08/22/21 10:06 Results - Laboratory Findings CBC and BMP: 08/23/21 04:30 08/23/21 04:30 Abnormal lab findings: Abnormal Labs 08/22/21 08/22/21 08/22/21 11:28 11:28 14:02 WBC 29.0 H RBC 5.65 H Hgb 16.5 H Hct 50.2 H MCHC Seg Neuts % (Manual) 84.0 H Lymphocytes % (Manual) 9.0 L Seg Neutrophils # Man 24.4 H Monocytes # (Manual) 1.2 H Sodium Potassium Chloride 89.5 L Carbon Dioxide 16 L BUN 53 H Creatinine 6.7 H Glucose 152 H Lactic Acid Calcium 12.0 H Total Bilirubin 2.10 H AST Total Creatine Kinase 1934 H Total Protein 11.6 H Albumin 7.3 H 08/22/21 08/22/21 08/22/21 16:53 18:04 18:39 WBC RBC Hgb Hct MCHC Seg Neuts % (Manual) Lymphocytes % (Manual) Seg Neutrophils # Man Monocytes # (Manual) Sodium Potassium 5.3 H Chloride 94.4 L Carbon Dioxide BUN 61 H Creatinine 6.5 H Glucose 102 H Lactic Acid 3.40 H* 2.80 H* Calcium 11.4 H Total Bilirubin AST Total Creatine Kinase Total Protein Albumin 08/22/21 08/22/21 08/23/21 19:54 21:25 04:30 WBC 21.7 H RBC Hgb Hct MCHC 35 H Seg Neuts % (Manual) 84.0 H Lymphocytes % (Manual) 10.0 L Seg Neutrophils # Man 18.2 H Monocytes # (Manual) 1.3 H Sodium Potassium Chloride Carbon Dioxide BUN Creatinine Glucose Lactic Acid 3.10 H* Calcium Total Bilirubin AST Total Creatine Kinase 3046 H Total Protein Albumin 08/23/21 08/23/21 08/23/21 04:30 09:15 09:15 WBC RBC Hgb Hct MCHC Seg Neuts % (Manual) Lymphocytes % (Manual) Seg Neutrophils # Man Monocytes # (Manual) Sodium 135 L Potassium Chloride 96.6 L Carbon Dioxide BUN 62 H Creatinine 3.8 H Glucose 112 H Lactic Acid 3.20 H* Calcium Total Bilirubin 2.20 H AST 52 H Total Creatine Kinase 2752 H Total Protein Albumin - Diagnostic Findings Chest x-ray: image reviewed CT scan - chest: image reviewed (reviewed the CT. Do not see a basilar PTX) Assessment and Plan 26 y/o male with presumed acute renal failure, nausea and vomiting, electrolyte abnormalities and pneumomediastinum found on CT. 1. Most likely this is from wretching. Patient could have underlying asthma that is undiagnosed as well. This (pneumomediastinum) is commonly seen in the younger population with asthma and exaerbations or from stress (wretching). I do not appreciate a PTX and definitely if one is present it is not large enough to treat. Suggest repeat CXR in 24-48 hours to make sure PTX is not enlarging if present. Will follow.
[2021-08-23] MEDS: metroNIDAZOLE/NS 500 MG/100 ML 500 MG/100 ML BAG IV SCH ×2 (13:19→18:56)
[2021-08-23] MEDS: HEPARIN 5,000 UNIT/1 ML VIAL SUB-Q SCH ×2 (13:20→21:14)
[2021-08-23 15:42] LABS: Hematocrit 38.8 % (35.5-45.6); Hemoglobin 13.1 gm/dl (11.8-15.2); Mean Corpuscular HGB Conc 34 % (32-34); Mean Corpuscular Volume 89 fl (84-94); Platelet Count 292 K/mm3 (140-440); Red Blood Count 4.35 M/mm3 (3.65-5.03); Red Cell Distribution Width 13.5 % (13.2-15.2)
[2021-08-23 16:14] LABS: Calcium 9.4 mg/dL (8.4-10.2)
--- NOTE | 2021-08-23 19:15 | Progress Note ---
Assessment and Plan Assessment and plan: #Pneumomediastinum CT chest/abdomen/pelvis stated there might be "possible" esophageal perforation in addition to pneumomediastinum that was visualized on imaging Patient remained hemodynamically stable and is not revealing symptoms of esophageal perforation. Gastroenterology consulted; appreciate recs. Pulmonology consulted; appreciate recs. Pneumomediastinum is possibly secondary to undiagnosed asthma in the setting of severe retching. Will repeat chest x-ray tomorrow morning to see if pneumomediastinum is increasing in size. Continue to monitor. #AKIimproving Creatinine 6.5--> 3.8--> 2.0 (baseline unknown) Likely secondary to rhabdomyolysis. Continue IV fluid resuscitation at 150 cc/hour #Rhabdomyolysisimproving Creatine kinase 1934--> 3046--> 2752 Likely secondary to severe retching; however, patient's CK is still at a safe level for potential discharge. #Lactic acidosis Lactic acid 3.10--> 3.20 Likely secondary to rhabdomyolysis. Continue to trend until negative. #Hyperkalemiaresolved Potassium 5.3--> 4.8 #Leukocytosisimproving WBC 21.7--> 12.0 Likely secondary to severe retching versus inflammatory response rather than infectious etiology Continue to monitor with daily CBC #Hypercalcemiaresolved Calcium 11.4--> 9.8--> 9.4 #Advanced care planning -Disease education conducted, care plan discussed, diagnoses discussed, prognosis discussed, and patient acknowledges understanding with care plan -Time: +30 min #Discharge planning - Patient is pending repeat lactic acid and chest x-ray - Case management has been made aware. - Discharge is tentatively tomorrow. Disposition Plan: Continue medical management Total Time Spent with Patient (Minutes): 45 minutes History Interval history: No acute events overnight. Hospitalist Physical - Constitutional Vitals: Temp Pulse Resp BP Pulse Ox 98.0 F 69 18 106/57 98 08/23/21 15:51 08/23/21 07:21 08/23/21 15:51 08/23/21 15:51 08/23/21 07:21 General appearance: Present: no acute distress, well-nourished - EENT Eyes: Present: PERRL, EOM intact ENT: hearing intact, clear oral mucosa, dentition normal - Neck Neck: Present: supple, normal ROM - Respiratory Respiratory effort: normal Respiratory: bilateral: CTA - Cardiovascular Rhythm: regular Heart Sounds: Present: S1 & S2 - Extremities Extremities: no ischemia, pulses intact, pulses symmetrical, No edema, normal temperature, normal color, Full ROM Peripheral Pulses: within normal limits - Abdominal General gastrointestinal: soft, non-tender, non-distended, normal bowel sounds - Integumentary Integumentary: Present: clear, warm, dry - Psychiatric Psychiatric: appropriate mood/affect, intact judgment & insight, memory intact, cooperative - Neurologic Neurologic: CNII-XII intact, moves all extremities - Allied Health Allied health notes reviewed: nursing Results - Labs CBC & Chem 7: 08/23/21 15:03 08/23/21 15:03 Labs: Laboratory Last Values WBC 12.4 K/mm3 (4.5-11.0) H 08/23/21 15:03 RBC 4.35 M/mm3 (3.65-5.03) 08/23/21 15:03 Hgb 13.1 gm/dl (11.8-15.2) 08/23/21 15:03 Hct 38.8 % (35.5-45.6) 08/23/21 15:03 MCV 89 fl (84-94) 08/23/21 15:03 MCH 30 pg (28-32) 08/23/21 15:03 MCHC 34 % (32-34) 08/23/21 15:03 RDW 13.5 % (13.2-15.2) 08/23/21 15:03 Plt Count 292 K/mm3 (140-440) 08/23/21 15:03 Add Manual Diff Complete 08/23/21 04:30 Total Counted 100 08/23/21 04:30 Seg Neuts % (Manual) 84.0 % (40.0-70.0) H 08/23/21 04:30 Band Neutrophils % 0 % 08/23/21 04:30 Lymphocytes % (Manual) 10.0 % (13.4-35.0) L 08/23/21 04:30 Reactive Lymphs % (Man) 0 % 08/23/21 04:30 Monocytes % (Manual) 6.0 % (0.0-7.3) 08/23/21 04:30 Eosinophils % (Manual) 0 % (0.0-4.3) 08/23/21 04:30 Basophils % (Manual) 0 % (0.0-1.8) 08/23/21 04:30 Metamyelocytes % 0 % 08/23/21 04:30 Myelocytes % 0 % 08/23/21 04:30 Promyelocytes % 0 % 08/23/21 04:30 Blast Cells % 0 % 08/23/21 04:30 Nucleated RBC % Not Reportable 08/23/21 04:30 Seg Neutrophils # Man 18.2 K/mm3 (1.8-7.7) H 08/23/21 04:30 Band Neutrophils # 0.0 K/mm3 08/23/21 04:30 Lymphocytes # (Manual) 2.2 K/mm3 (1.2-5.4) 08/23/21 04:30 Abs React Lymphs (Man) 0.0 K/mm3 08/23/21 04:30 Monocytes # (Manual) 1.3 K/mm3 (0.0-0.8) H 08/23/21 04:30 Eosinophils # (Manual) 0.0 K/mm3 (0.0-0.4) 08/23/21 04:30 Basophils # (Manual) 0.0 K/mm3 (0.0-0.1) 08/23/21 04:30 Metamyelocytes # 0.0 K/mm3 08/23/21 04:30 Myelocytes # 0.0 K/mm3 08/23/21 04:30 Promyelocytes # 0.0 K/mm3 08/23/21 04:30 Blast Cells # 0.0 K/mm3 08/23/21 04:30 WBC Morphology Not Reportable 08/23/21 04:30 Hypersegmented Neuts Not Reportable 08/23/21 04:30 Hyposegmented Neuts Not Reportable 08/23/21 04:30 Hypogranular Neuts Not Reportable 08/23/21 04:30 Smudge Cells Not Reportable 08/23/21 04:30 Toxic Granulation Not Reportable 08/23/21 04:30 Toxic Vacuolation Not Reportable 08/23/21 04:30 Dohle Bodies Not Reportable 08/23/21 04:30 Pelger-Huet Anomaly Not Reportable 08/23/21 04:30 Terrell Rods Not Reportable 08/23/21 04:30 Platelet Estimate Consistent w auto 08/23/21 04:30 Clumped Platelets Not Reportable 08/23/21 04:30 Plt Clumps, EDTA Not Reportable 08/23/21 04:30 Large Platelets Not Reportable 08/23/21 04:30 Giant Platelets Not Reportable 08/23/21 04:30 Platelet Satelliting Not Reportable 08/23/21 04:30 Plt Morphology Comment Not Reportable 08/23/21 04:30 RBC Morphology Normal 08/23/21 04:30 Dimorphic RBCs Not Reportable 08/23/21 04:30 Polychromasia Not Reportable 08/23/21 04:30 Hypochromasia Not Reportable 08/23/21 04:30 Poikilocytosis Not Reportable 08/23/21 04:30 Anisocytosis Not Reportable 08/23/21 04:30 Microcytosis Not Reportable 08/23/21 04:30 Macrocytosis Not Reportable 08/23/21 04:30 Spherocytes Not Reportable 08/23/21 04:30 Pappenheimer Bodies Not Reportable 08/23/21 04:30 Sickle Cells Not Reportable 08/23/21 04:30 Target Cells Not Reportable 08/23/21 04:30 Tear Drop Cells Not Reportable 08/23/21 04:30 Ovalocytes Not Reportable 08/23/21 04:30 Helmet Cells Not Reportable 08/23/21 04:30 Burgos-[place] Bodies Not Reportable 08/23/21 04:30 [place] Rings Not Reportable 08/23/21 04:30 Gian Cells Not Reportable 08/23/21 04:30 Bite Cells Not Reportable 08/23/21 04:30 Crenated Cell Not Reportable 08/23/21 04:30 Elliptocytes Not Reportable 08/23/21 04:30 Acanthocytes (Spur) Not Reportable 08/23/21 04:30 Rouleaux Not Reportable 08/23/21 04:30 Hemoglobin C Crystals Not Reportable 08/23/21 04:30 Schistocytes Not Reportable 08/23/21 04:30 Malaria parasites Not Reportable 08/23/21 04:30 Jez Bodies Not Reportable 08/23/21 04:30 Hem Pathologist Commnt No 08/23/21 04:30 Sodium 137 mmol/L (137-145) 08/23/21 15:03 Potassium 5.0 mmol/L (3.6-5.0) 08/23/21 15:03 Chloride 99.6 mmol/L (98-107) 08/23/21 15:03 Carbon Dioxide 22 mmol/L (22-30) 08/23/21 15:03 Anion Gap 20 mmol/L 08/23/21 15:03 BUN 49 mg/dL (9-20) H 08/23/21 15:03 Creatinine 2.0 mg/dL (0.8-1.3) H 08/23/21 15:03 Estimated GFR 41 ml/min 08/23/21 15:03 BUN/Creatinine Ratio 25 % 08/23/21 15:03 Glucose 85 mg/dL (75-100) 08/23/21 15:03 Lactic Acid 3.20 mmol/L (0.7-2.0) H* 08/23/21 09:15 Calcium 9.4 mg/dL (8.4-10.2) 08/23/21 15:03 Total Bilirubin 2.20 mg/dL (0.1-1.2) H 08/23/21 04:30 AST 52 units/L (5-40) H 08/23/21 04:30 ALT 25 units/L (7-56) 08/23/21 04:30 Alkaline Phosphatase 98 units/L (35-129) 08/23/21 04:30 Total Creatine Kinase 2752 units/L (55-170) H 08/23/21 09:15 Total Protein 8.0 g/dL (6.3-8.2) D 08/23/21 04:30 Albumin 4.9 g/dL (3.9-5) 08/23/21 04:30 Albumin/Globulin Ratio 1.6 % 08/23/21 04:30 Lipase 51 units/L (13-60) 08/22/21 13:30 Urine Color Yellow (Yellow) 08/23/21 05:39 Urine Turbidity Slightly-cloudy (Clear) 08/23/21 05:39 Urine pH 5.0 (5.0-7.0) 08/23/21 05:39 Ur Specific [place] 1.018 (1.003-1.030) 08/23/21 05:39 Urine Protein 100 mg/dl mg/dL (Negative) 08/23/21 05:39 Urine Glucose (UA) 50 mg/dL (Negative) 08/23/21 05:39 Urine Ketones Neg mg/dL (Negative) 08/23/21 05:39 Urine Blood Lg (Negative) 08/23/21 05:39 Urine Nitrite Neg (Negative) 08/23/21 05:39 Urine Bilirubin Neg (Negative) 08/23/21 05:39 Urine Urobilinogen < 2.0 mg/dL (<2.0) 08/23/21 05:39 Ur Leukocyte Esterase Neg (Negative) 08/23/21 05:39 Urine WBC (Auto) 4.0 /HPF (0.0-6.0) 08/23/21 05:39 Urine RBC (Auto) 2.0 /HPF (0.0-6.0) 08/23/21 05:39 Microbiology: Microbiology 08/23/21 15:03 Peripheral/Venous Blood Culture - Preliminary Culture in Progress 08/23/21 15:03 Peripheral/Venous Blood Culture - Preliminary Culture in Progress [place]/IV: Voiding Method Urinal Active Medications - Current Medications Current Medications: Generic Name Dose Route Start Last Admin Trade Name Freq PRN Reason Stop Dose Admin Acetaminophen 650 mg 08/22/21 20:59 Acetaminophen 325 Mg Tab PO Q4H PRN Pain MILD(1-3)/Fever >100.5/AMADOR Heparin Sodium (Porcine) 5,000 unit 08/22/21 22:00 08/23/21 13:20 Heparin 5,000 Unit/1 Ml Vial SUB-Q 5,000 unit Q12HR ARELI Administration Sodium Chloride 1,000 mls @ 150 mls/hr 08/22/21 21:00 08/23/21 06:43 Nacl 0.9% 1000 Ml IV 150 mls/hr DIRECT ARELI Administration Ceftriaxone Sodium 1 gm in 50 mls @ 100 mls/hr 08/23/21 01:00 08/23/21 13:15 Rocephin/Ns 1 Gm/50 Ml IV 100 mls/hr Q24HR ARELI Administration Protocol Metronidazole 500 mg in 100 mls @ 100 mls/hr 08/23/21 10:00 08/23/21 18:56 Flagyl 500 Mg/100 Ml IV 100 mls/hr Q8H ARELI Administration Protocol Metoclopramide HCl 5 mg 08/22/21 20:59 Metoclopramide 10 Mg/2 Ml Inj IV Q6H PRN Nausea And Vomiting Morphine Sulfate 2 mg 08/22/21 20:59 Morphine 2 Mg/1 Ml Inj IV Q4H PRN Pain, Moderate (4-6) Ondansetron HCl 4 mg 08/22/21 20:59 Ondansetron 4 Mg/2 Ml Inj IV Q8H PRN Nausea And Vomiting Oxycodone/Acetaminophen 1 tab 08/22/21 20:59 Oxycodone /Acetaminophen 5-325mg Tab PO Q6H PRN Pain, Moderate (4-6) Sodium Chloride 10 ml 08/22/21 22:00 08/23/21 13:20 Sodium Chloride 0.9% 10 Ml Flush Syringe IV 10 ml BID ARELI Administration Sodium Chloride 10 ml 08/22/21 20:59 Sodium Chloride 0.9% 10 Ml Flush Syringe IV PRN PRN LINE FLUSH
[2021-08-24] MEDS: metroNIDAZOLE/NS 500 MG/100 ML 500 MG/100 ML BAG IV SCH ×2 (01:35→10:20)
[2021-08-24 05:21] LABS: Basophils # (Auto) 0.1 K/mm3 (0.0-0.1); Basophils % (Auto) 0.7 % (0.0-1.8); Eosinophils # (Auto) 0.1 K/mm3 (0.0-0.4); Eosinophils % (Auto) 1.5 % (0.0-4.3); Hematocrit 36.3 % (35.5-45.6); Hemoglobin 11.7 gm/dl (11.8-15.2); Lymphocytes # (Auto) 2.2 K/mm3 (1.2-5.4); Lymphocytes % (Auto) 24.4 % (13.4-35.0); Mean Corpuscular HGB Conc 32 % (32-34); Mean Corpuscular Volume 90 fl (84-94); Monocytes % (Auto) 10.7 % (0.0-7.3); Platelet Count 265 K/mm3 (140-440); Red Blood Count 4.04 M/mm3 (3.65-5.03); Red Cell Distribution Width 13.1 % (13.2-15.2)
[2021-08-24 05:46] LABS: Alanine Aminotransferase 23 units/L (7-56); Albumin 3.9 g/dL (3.9-5); BUN/Creatinine Ratio 29; Blood Urea Nitrogen 32 mg/dL (9-20); Hemolysis Index 21
[2021-08-24] MEDS: SODIUM CHLORIDE 0.9% 1000 ML 1,000 ML IV SCH (07:42)
[2021-08-24 08:37] VITALS: BP 102/48
[2021-08-24] MEDS: HEPARIN 5,000 UNIT/1 ML VIAL SUB-Q SCH (10:20)
[2021-08-24] MEDS: cefTRIAXone/NS 1 GM/50 ML 1 GM/50 ML BAG IV SCH (10:20)
--- NOTE | 2021-08-24 10:35 | XRay Report ---
CHEST 2 VIEWS INDICATION: Evaluate pneumomediastinum. COMPARISON: CT chest 08/22/2021. FINDINGS: Support devices: None. Heart: Within normal limits. Lungs/Pleura: No acute air space or interstitial disease. No significant pleural effusion. Pneumome diastinum remains and is similar to the sex offender treatment professional from the previous chest CT. IMPRESSION: 1. New infiltrate. 2. Pneumomediastinum similar to previous chest CT. Signer Name: Bakari Mae MD Signed: 08/24/2021 10:30 AM Workstation Name: [id number]
--- NOTE | 2021-08-24 11:14 | Discharge Summary ---
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 Procedures: None. Hospital course: Patient is 26-year-old male with no significant past medical history who presented with complaints of abdominal pain, vomiting, nausea, generalized body aches, malaise, and subjective fevers beginning the day prior to presentation. The patient is originally from [place] and is out of town visiting a friend. Patient describes having similar episodes approximately 1 year ago that improved with fluid. On presentation to the ED, the patient was found to be hemodynamically stable. His labs were remarkable for a creatinine of 6.7, total bilirubin 2.10, creatine kinase 1934, lactic acidosis 3.1, hyperkalemia 5.3, hypercalcemia 11.4, and WBC of 29. Patient underwent CT chest/abdomen/pelvis that was unremarkable for etiology of his abdominal pain, nausea, and vomiting. There was possible suggestion of esophageal perforation in addition to a pneumomediastinum; however, the patient remained hemodynamically stable throughout the entire encounter. Patient was evaluated by gastroenterology and pulmonology. Gastroenterology disagreed with the possible diagnosis of esophageal perforation, and the patient was able to tolerate p.o. intake without any complaints. Pulmonology evaluated the pneumomediastinum, and they found it to be minuscule in size and not requiring a chest tube/additional intervention. The patient underwent IV resuscitation with improvement in his renal function back to baseline, leukocytosis back to baseline, and hyperkalemia. Patient underwent a repeat chest x-ray the following morning to reevaluate the pneumomediastinum that was unchanged. Patient is medically clear for discharge. Disposition: 01 HOME / SELF CARE / HOMELESS Final Discharge Diagnosis (Prints w/discharge instructions): Pneumomediastinum, TRACEY, rhabdomyolysis, lactic acidosis, hyperkalemia, leukocytosis, hypercalcemia Time spent for discharge: 45 min Core Measure Documentation - Palliative Care Palliative Care/ Comfort Measures: Not Applicable - Core Measures Any of the following diagnoses?: none Exam - Constitutional Vitals: Temp Pulse Resp BP Pulse Ox 98.2 F 78 20 102/48 97 08/24/21 06:41 08/24/21 06:41 08/24/21 06:41 08/24/21 06:41 08/24/21 08:05 General appearance: Present: no acute distress, well-nourished - EENT Eyes: Present: PERRL, EOM intact ENT: hearing intact, clear oral mucosa, dentition normal - Neck Neck: Present: supple, normal ROM - Respiratory Respiratory effort: normal Respiratory: bilateral: CTA - Cardiovascular Rhythm: regular Heart Sounds: Present: S1 & S2 - Extremities Extremities: no ischemia, pulses intact, pulses symmetrical, No edema, normal temperature, normal color, Full ROM Peripheral Pulses: within normal limits - Abdominal General gastrointestinal: Present: soft, non-tender, non-distended, normal bowel sounds Male genitourinary: Present: deferred - Rectal Rectal Exam: deferred - Integumentary Integumentary: Present: clear, warm, dry - Musculoskeletal Musculoskeletal: strength equal bilaterally - Psychiatric Psychiatric: appropriate mood/affect, intact judgment & insight, memory intact, cooperative - Neurologic Neurologic: CNII-XII intact, moves all extremities - Allied Health Allied health notes reviewed: nursing Plan Activity: no restrictions Diet: regular Additional Instructions: Patient is 26-year-old male with no significant past medical history who presented with complaints of abdominal pain, vomiting, nausea, generalized body aches, malaise, and subjective fevers beginning the day prior to presentation. The patient is originally from [place] and is out of town visiting a friend. Patient describes having similar episodes approximately 1 year ago that improved with fluid. On presentation to the ED, the patient was found to be hemodynamically stable. His labs were remarkable for a creatinine of 6.7, total bilirubin 2.10, creatine kinase 1934, lactic acidosis 3.1, hyperkalemia 5.3, hypercalcemia 11.4, and WBC of 29. Patient underwent CT chest/abdomen/pelvis that was unremarkable for etiology of his abdominal pain, nausea, and vomiting. There was possible suggestion of esophageal perforation in addition to a pneumomediastinum; however, the patient remained hemodynamically stable throughout the entire encounter. Patient was evaluated by gastroenterology and pulmonology. Gastroenterology disagreed with the possible diagnosis of esophageal perforation, and the patient was able to tolerate p.o. intake without any complaints. Pulmonology evaluated the pneumomediastinum, and they found it to be minuscule in size and not requiring a chest tube/additional intervention. The patient underwent IV resuscitation with improvement in his renal function back to baseline, leukocytosis back to baseline, and hyperkalemia. Patient underwent a repeat chest x-ray the following morning to reevaluate the pneumomediastinum that was unchanged. Patient is medically clear for discharge. Care Plan Goals: Patient is medically cleared for discharge. Assessment: Patient is 26-year-old male with no significant past medical history who presented with complaints of abdominal pain, vomiting, nausea, generalized body aches, malaise, and subjective fevers beginning the day prior to presentation. The patient is originally from [place] and is out of town visiting a friend. Patient describes having similar episodes approximately 1 year ago that improved with fluid. On presentation to the ED, the patient was found to be hemodynamically stable. His labs were remarkable for a creatinine of 6.7, total bilirubin 2.10, creatine kinase 1934, lactic acidosis 3.1, hyperkalemia 5.3, hypercalcemia 11.4, and WBC of 29. Patient underwent CT chest/abdomen/pelvis that was unremarkable for etiology of his abdominal pain, nausea, and vomiting. There was possible suggestion of esophageal perforation in addition to a pneumomediastinum; however, the patient remained hemodynamically stable throughout the entire encounter. Patient was evaluated by gastroenterology and pulmonology. Gastroenterology disagreed with the possible diagnosis of esophageal perforation, and the patient was able to tolerate p.o. intake without any complaints. Pulmonology evaluated the pneumomediastinum, and they found it to be minuscule in size and not requiring a chest tube/additional intervention. The patient underwent IV resuscitation with improvement in his renal function back to baseline, leukocytosis back to baseline, and hyperkalemia. Patient underwent a repeat chest x-ray the following morning to reevaluate the pneumomediastinum that was unchanged. Patient is medically clear for discharge. Follow up with: PRIMARY CARE, [Primary Care Provider] - 7 Days
== END 2021-08-24 17:21 | disposition home or self-care (01) | DRG 683 ==
LOC: ED 09:37 → 4A 21:00
PROVIDERS: ADMIT Internal Medicine; ATTEND Student in an Organized Health Care Education/Training Program
DX: N17.9 Acute kidney failure, unspecified (principal); M62.82 Rhabdomyolysis; E87.2 Acidosis; J93.9 Pneumothorax, unspecified; Z20.822 Contact with and (suspected) exposure to COVID-19; J98.2 Interstitial emphysema; D72.829 Elevated white blood cell count, unspecified; E83.52 Hypercalcemia; E87.5 Hyperkalemia; Z82.49 Family history of ischemic heart disease and other diseases of the circulatory system
CPT/HCPCS: 36415; 71046; 71250; 74176; 80048; 80053; 81001; 82140; 82550; 83690; 85007; 85025; 85027; 87040; 87086; G0378; J3490; J7517; J0696; J1644; J7030; Q0162; U0003